=== PATIENT | female | born 1980 ===

== ENCOUNTER 2019-05-08 13:15 | Emergency (ER) | payer SELFPAY ==
[2019-05-08] MEDS ORDERED: HYDROmorphone HCL/PF 1 MG/ML VIAL ONE (15:45)
[2019-05-08] MEDS ORDERED: NORMAL SALINE 1,000 ML IV.SOLN IV ONE (15:45)
[2019-05-08] MEDS ORDERED: ONDANSETRON HCL/PF 4 MG/ 2ML VIAL ONE (15:45)
[2019-05-18 08:02] LABS: APPEARANCE,URINE CLOUDY (CLEAR); COLOR,URINE AMBER (YELLOW); OCCULT BLOOD,URINE NEGATIVE (NEGATIVE); UROBILINOGEN URINE 0.2 Eu (0.2-1.0)
[2019-05-18 08:37] LABS: BASOPHILS % 0.6 % (0.0-1.5); eGFR (Non-African) > 60
--- NOTE | 2019-05-30 13:45 | Diagnostic Imaging Report ---
[facility] [address] [facility].[address] [id number] Report Submission Date: May 08, 2019 3:00:35 PM CDT Patient Study Name: TOMMY SERRATO Date: May 08, 2019 2:36:03 PM CDT Modality Type: DX Gender: F Description: ABDOMEN 1VIEW : 78 Institution: [facility] Physician: L[facility] Examination: Obstruction series History: ABDOMINAL PAIN; NO BM X 4 DAYS Findings: 4 views obtained of the abdomen. No abnormal dilation of the large or small bowel. Air and stool throughout the large bowel. No suspicious calcification projecting over the renal fossa or the lower pelvic region. Osseous structures are appropriate for age. Impression: No ileus or obstruction. No suspicious calcifications by plain film sensitivity. Electronically signed on May 08, 2019 3:00:35 PM CDT by: Zain GORDILLO
--- NOTE | 2019-05-30 13:47 | Diagnostic Imaging Report ---
[facility] [address] [facility] [address] [address] Report Submission Date: May 08, 2019 4:12:10 PM CDT Patient Study Name: TOMMY SERRATO Date: May 08, 2019 3:19:00 PM CDT Modality Type: US Gender: F Description: UR RUQ : 78 Institution: [facility] Physician: L[facility] Exam: Right upper quadrant ultrasound. History: Right upper quadrant pain. Real-time grayscale imaging of the right upper quadrant is performed. The examination is compromised due to overlying bowel gas and patient's large body habitus. The pancreas, gallbladder and common bile duct are not well visualized. The liver measures 14.7 cm in length and appears normal in echotexture. No ascites or other abdominal mass in the right upper quadrant is seen. The right kidney is of normal echotexture. Impression: Exam compromised due to patient's large body habitus. The liver appears normal in echotexture. CT may be necessary to further evaluate. Electronically signed on May 08, 2019 4:12:10 PM CDT by: Otto GORDILLO
== END 2019-05-08 16:52 ==
LOC: ED 13:15
DX: R10.12 Left upper quadrant pain (principal); R94.5 Abnormal results of liver function studies
CPT/HCPCS: 74018; 76700; 80053; 81002; 83690; 85025; 87086; 99282; 99283; J1170; J2405; J7030; S1016